=== PATIENT | male | born 1955 | race Caucasian/White ===

== ENCOUNTER 2018-11-23 18:44 | Emergency (ER) | payer BC, OTHER ==
[~2018-11-23] VITALS: Ht 190.5 cm; Wt 99.8 kg
--- NOTE | 2018-11-23 19:06 | NUR ---
PT IS IN ROOM #1A. DR FARLEY EVALUATED THE PT.
--- NOTE | 2018-11-23 19:10 | NUR ---
Patient ambulated with stable gait. A/Ox4. Patient came for c/o LLE pain starting earlier today. Respiratory even and unlabored, no cough no sob. Has a hx of DVT, PE, states he is not on any blood thinners. No acute cardiovascular distress noted, good perfusion, all pulses palpable.
--- NOTE | 2018-11-23 19:52 | NUR ---
Ultrasound at bedside for scan of LLE.
--- NOTE | 2018-11-23 20:31 | NUR ---
Patient discharged to home in stable conditon. Verbal after care instructions for discharge provided by Dr. Harpreet NAVARRETE. Patient verbalizes understanding of instructions. Patient ambulated with stable gait.
[2018-11-23 20:33] VITALS: BP 115/64
== END 2018-11-23 20:34 | disposition home or self-care (01) ==
LOC: ER 18:44
DX: I80.02 Phlebitis and thrombophlebitis of superficial vessels of left lower extremity (principal); E78.00 Pure hypercholesterolemia, unspecified
CPT/HCPCS: A4663

== ENCOUNTER 2022-03-21 13:05 | Emergency (ER) | payer MEDICARE, BC ==
[~2022-03-21] VITALS: Ht 190.5 cm; Wt 102.1 kg
[2022-03-21] MEDS ORDERED: ASPI81TA31 PO (13:54)
[2022-03-21] MEDS ORDERED: ROSU20TA2 PO (13:54)
[2022-03-21] MEDS ORDERED: LOSA25TA27 PO (13:54)
[2022-03-21] MEDS ORDERED: CIPROFLOXACIN HCL 250 MG TABLET PO ONE (14:00)
[2022-03-21] MEDS ORDERED: ONDANSETRON ODT 4 MG TAB.RAPDIS SL ONE (14:00)
[2022-03-21] MEDS ORDERED: ONDA4TAB5 PO (14:03)
[2022-03-21] MEDS ORDERED: CIPR250T4 PO (14:03)
[2022-03-21] MEDS ORDERED: ONDANSETRON ODT 4 MG TAB.RAPDIS ONE (14:05)
[2022-03-21] MEDS ORDERED: CIPROFLOXACIN HCL 250 MG TABLET ONE (14:05)
--- NOTE | 2022-03-21 14:40 | NUR ---
Patient discharged to home in stable condition. Written and verbal after care instructions given. Patient verbalizes understanding of instructions. Stressed follow up or return to ER for worsening s/s.
== END 2022-03-21 14:41 | disposition home or self-care (01) ==
LOC: ER 13:05
DX: A08.8 Other specified intestinal infections (principal); Z86.718 Personal history of other venous thrombosis and embolism; Z79.82 Long term (current) use of aspirin; Z79.899 Other long term (current) drug therapy; Z95.5 Presence of coronary angioplasty implant and graft
CPT/HCPCS: A4663; Q0162